=== PATIENT | female | born 2000 | race African-American/Black ===

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

== ENCOUNTER 2023-08-14 19:45 | Emergency (ER) | payer OTHER ==
[2023-08-14 19:50] VITALS: BP 121/71; PULSE 105; RESP 14; TEMP 98.3; BMI 22.2
[2023-08-14] MEDS ORDERED: KETOROLAC TROMETHAMINE 30 MG/1 ML VIAL ONE (20:15)
[2023-08-14] MEDS ORDERED: ACETAMINOPHEN 500 MG TABLET (FP) ONE (20:15)
[2023-08-14] MEDS: KETOROLAC TROMETHAMINE 30 MG/1 ML VIAL IM ONE (20:18)
[2023-08-14] MEDS: ACETAMINOPHEN 500 MG TABLET (FP) PO ONE (20:18)
[2023-08-14] MEDS ORDERED: SULFAMETHOXAZOLE/TRIMETHOPRIM 800MG/160MG D.S. TABLET ONE (21:04)
[2023-08-14] MEDS: SULFAMETHOXAZOLE/TRIMETHOPRIM 800MG/160MG D.S. TABLET PO ONE (21:07)
== END 2023-08-14 21:07 | disposition home or self-care (01) ==
LOC: JERFT 19:45
PROC: 0HQ7XZZ Repair Abdomen Skin, External Approach (ICD-10-PCS; principal; 2023-08-14)
PROC: 3E0233Z Introduction of Anti-inflammatory into Muscle, Percutaneous Approach (ICD-10-PCS; 2023-08-14)
DX: L02.211 Cutaneous abscess of abdominal wall (principal)
CPT/HCPCS: 87070; 87186; 87205; 99284-25